=== PATIENT | female | born 1985 | race African-American/Black ===

== ENCOUNTER 2018-10-15 14:20 | Emergency (ER) | payer OTHER ==
[~2018-10-15] VITALS: Ht 160 cm; Wt 61.0 kg
[2018-10-15] MEDS ORDERED: IBUPROFEN 600MG TABLET PO ONE (15:30)
[2018-10-15 15:45] VITALS: BP 115/72
== END 2018-10-15 16:37 | disposition home or self-care (01) ==
LOC: ER 15:00
DX: S00.03XA Contusion of scalp, initial encounter (principal); S00.511A Abrasion of lip, initial encounter; R07.81 Pleurodynia; Y04.0XXA Assault by unarmed brawl or fight, initial encounter; Y93.89 Activity, other specified; Y92.89 Other specified places as the place of occurrence of the external cause; Y99.8 Other external cause status
CPT/HCPCS: 81025; 99282

== ENCOUNTER 2019-05-10 19:37 | Emergency (ER) | payer MEDICAID, OTHER ==
[~2019-05-10] VITALS: Ht 160 cm; Wt 63.0 kg
[2019-05-11 01:47] LABS: BASOPHILS % 0.3 % (0.0-2.0); EOSINOPHILS % 0.9 % (0.0-5.0); HEMOGLOBIN. 12.2 g/dL (12.0-16.0); LYMPHOCYTES % 23.8 % (20.0-50.0); MEAN CORPUSCULAR HEMOGLOBIN 30.3 pg (28.0-32.0); MEAN CORPUSCULAR VOLUME 89.2 fL (81.0-99.0); MEAN PLATELET VOLUME 9.1 fl (7.4-10.4); MONOCYTES % 7.6 % (2.0-8.0); NEUTROPHILS % 67.4 % (40.0-76.0); PLATELET 201 x1000/uL (130-400); RED BLOOD CELL COUNT 4.04 mill/uL (4.2-5.4); RED CELL DISTRIBUTION WIDTH 13.8 % (11.6-14.6)
[2019-05-11 02:16] LABS: CLARITY URINE CLOUDY (CLEAR); COLOR URINE YELLOW (YELLOW); KETONES URINE NEGATIVE (NEGATIVE); LEUKOCYTE ESTERASE URINE 3+ (NEGATIVE); NITRITE URINE NEGATIVE (NEGATIVE); OCCULT BLOOD URINE 1+ (NEGATIVE); PROTEIN URINE NEGATIVE (NEGATIVE); SPECIFIC GRAVITY URINE 1.015 (1.005-1.030); UROBILINOGEN URINE 0.2 E.U./dL (0.2-1.0)
[2019-05-11 03:15] VITALS: BP 112/64
== END 2019-05-11 04:07 | disposition home or self-care (01) ==
LOC: ER 19:37
DX: O20.0 Threatened abortion (principal); O23.41 Unspecified infection of urinary tract in pregnancy, first trimester; Z3A.08 8 weeks gestation of pregnancy
CPT/HCPCS: 36415; 76801; 81003; 81025; 84702; 85025; 86850; 86900; 99284

== ENCOUNTER 2019-06-07 17:27 | Emergency (ER) | payer MEDICAID ==
[~2019-06-07] VITALS: Ht 160 cm; Wt 62.0 kg
[2019-06-07] MEDS ORDERED: ACETAMINOPHEN 325MG TABLET PO ONE (19:00)
[2019-06-07 19:09] LABS: BASOPHILS % 0.2 % (0.0-2.0); EOSINOPHILS % 0.7 % (0.0-5.0); HEMATOCRIT. 36.2 % (36.0-48.0); HEMOGLOBIN. 12.3 g/dL (12.0-16.0); MEAN CORPUSCULAR HEMOGLOBIN 30.5 pg (28.0-32.0); MEAN CORPUSCULAR VOLUME 89.7 fL (81.0-99.0); MEAN PLATELET VOLUME 9.7 fl (7.4-10.4); MONOCYTES % 6.7 % (2.0-8.0); NEUTROPHILS % 72.4 % (40.0-76.0); PLATELET 216 x1000/uL (130-400); RED BLOOD CELL COUNT 4.03 mill/uL (4.2-5.4); RED CELL DISTRIBUTION WIDTH 14.2 % (11.6-14.6)
[2019-06-07 19:30] LABS: CLARITY URINE CLOUDY (CLEAR); COLOR URINE YELLOW (YELLOW); KETONES URINE 2+ (NEGATIVE); LEUKOCYTE ESTERASE URINE 2+ (NEGATIVE); NITRITE URINE NEGATIVE (NEGATIVE); OCCULT BLOOD URINE 3+ (NEGATIVE); PROTEIN URINE TRACE (NEGATIVE); SPECIFIC GRAVITY URINE 1.011 (1.005-1.030); UROBILINOGEN URINE 0.2 E.U./dL (0.2-1.0)
[2019-06-07 19:31] LABS: CHLORIDE 103 mEq/L (98-107)
[2019-06-07 19:54] LABS: B-HCG QUANTITATIVE 88967 mIU/mL (<3)
[2019-06-07 22:00] VITALS: BP 110/62
== END 2019-06-07 22:00 | disposition home or self-care (01) ==
LOC: ER 17:27
DX: O20.0 Threatened abortion (principal); O99.331 Smoking (tobacco) complicating pregnancy, first trimester; O23.11 Infections of bladder in pregnancy, first trimester; Z3A.12 12 weeks gestation of pregnancy; F17.290 Nicotine dependence, other tobacco product, uncomplicated; Z98.890 Other specified postprocedural states
CPT/HCPCS: 36415; 76801; 80053; 81003; 84702; 85025; 99284; 99406